=== PATIENT | male | born 1965 | race Caucasian/White ===

== ENCOUNTER 2016-02-26 14:46 | Emergency (ER) | payer MEDICARE, MEDICAID ==
[~2016-02-26] VITALS: Wt 106.0 kg
[2016-02-26] MEDS ORDERED: CEFU500T PO (15:24)
--- NOTE | 2016-02-26 15:26 | ERD ---
ER Documentation Chief Complaint Date/Time DATE: 02/26/16 TIME: 15:25 Chief Complaint headache and sinus pain and fever for the past few days HPI This 50-year-old male presents with a one-2 day history of nasal congestion cough and frontal headache. Symptoms started when he presents to the hospital today for preop laboratory work for arthroscopic knee surgery scheduled in 1 week. May have had low-grade fevers denies shortness breath, vomiting, abdominal pain, neck stiffness. He is advised to be treated for possible sinusitis to avoid cancellation or postponement of his surgery. ROS All systems reviewed and are negative except as per history of present illness. Medications Home Meds Active Scripts Cefuroxime Axetil* (Ceftin*) 500 Mg Tablet, 500 MG PO BID for 10 Days, #20 TAB Prov:DANK LEO MD 02/26/16 Physical Exam Vitals Vital Signs Date Time Temp Pulse Resp B/P Pulse Ox O2 Delivery O2 Flow Rate FiO2 02/26/16 14:48 99.1 88 20 150/91 97 Physical Exam Const: [] Alert, [id number]. Head: Atraumatic Eyes: Normal Conjunctiva ENT: Normal External Ears, Nose and Mouth. 3+ nasal congestion. Mild maxillary tenderness. Postnasal drip. Neck: Full range of motion..~ No meningismus. Resp: Clear to auscultation bilaterally. Slight wheezy cough without rales or wheezing or retractions at rest. Cardio: Regular rate and rhythm, no murmurs Abd: Soft, non tender, non distended. Normal bowel sounds Skin: No petechiae or rashes Back: No midline or flank tenderness Ext: No cyanosis, or edema Neur: Awake and alert Psych: Normal Mood and Affect Procedures/MDM Patient presents with acute URI symptoms and signs of sinusitis. He was treated with Ceftin, Tylenol and instructions to follow-up with primary care doctor and otherwise recheck for new or worsening symptoms. The patient was stable with no new complaints during the ER course. Clinically, there is no current evidence to suggest meningitis, sepsis, acute abdomen, pneumonia, acute coronary syndrome, pulmonary embolism, or any other emergent condition appearing to require further evaluation or hospitalization. The patient should certainly return for any new or worsening symptoms per the aftercare instructions. They should otherwise follow-up with her primary care doctor for reevaluation this week. Departure Diagnosis: Primary Impression: Sinusitis Sinusitis location: frontal Chronicity: acute Recurrence: not specified as recurrent Qualified Code: J01.10 - Acute frontal sinusitis, recurrence not specified Condition: Stable Patient Instructions: Sinusitis, Abx Tx Additional Instructions: Take Tylenol for body aches or fever. Recheck with primary doctor or for new or worsening symptoms. Okay to take [id number] cough medicine as well per DANK LEO MD Feb 26, 2016 15:26
== END 2016-02-26 16:03 | disposition home or self-care (01) ==
LOC: FTE 14:46
DX: J01.10 Acute frontal sinusitis, unspecified (principal)
CPT/HCPCS: 99283

== ENCOUNTER 2016-03-25 09:00 | Day surgery (SDC) | payer MEDICARE, MEDICAID ==
[~2016-03-25] VITALS: Ht 180.3 cm; Wt 109.2 kg
[2016-03-25] VITALS (12 sets, daily range): BP systolic 134–155; BP diastolic 75–95; PULSE 76–88; RESP 10–25; Ht 180.3 cm; Wt 109.2 kg
[~2016-03-25 09:00] MED LIST: CEFU500T PO
[2016-03-25] MEDS ORDERED: LIDOCAINE 2% (SDV) 5 ML INJ ONE (10:03)
[2016-03-25] MEDS ORDERED: PROPOFOL 20 ML ONE (10:03)
[2016-03-25] MEDS ORDERED: FENTAnyl 50 MCG/ML VIAL ONE (10:03)
[2016-03-25] MEDS ORDERED: MIDAZOLAM 1 MG/ML 2 ML INJ ONE (10:04)
[2016-03-25] MEDS ORDERED: ESOM40CA PO (10:17)
[2016-03-25] MEDS ORDERED: TRAM50TA2 PO (10:17)
[2016-03-25] MEDS ORDERED: EFAV1TAB PO (10:17)
[2016-03-25] MEDS ORDERED: GABA300S PO (10:17)
--- NOTE | 2016-03-25 11:53 | HPN ---
Date/Time of Note Date/Time of Note DATE: 03/25/16 TIME: 11:53 Interval H&P Admission Note Pt. seen H&P reviewed: No system changes ALEA COBB MD Mar 25, 2016 11:53
[2016-03-25] MEDS ORDERED: OXYCODONE/ACETAMINOPHEN (5/325) TAB PO PRN ×3 (12:00→13:00)
[2016-03-25] MEDS ORDERED: morphine 10 MG INJ IV PRN (12:00)
[2016-03-25] MEDS ORDERED: morphine 2 MG INJ IV PRN (12:00)
[2016-03-25] MEDS ORDERED: ROPIVACAINE 0.5 % 30 ML VIAL ONE (12:20)
[2016-03-25] MEDS ORDERED: BUPIVACAINE 0.5% (SDV) 30 ML INJ ONE (12:20)
[2016-03-25] MEDS ORDERED: CEFAZOLIN 1 GM INJ ONE (12:25)
[2016-03-25] MEDS ORDERED: DEXAMETHASONE 4 MG/ML 1 ML INJ ONE (12:26)
[2016-03-25] MEDS ORDERED: ONDANSETRON 4 MG INJ ONE (12:26)
[2016-03-25] MEDS ORDERED: HYDROmorphONE 2 MG/ML SYG ONE (12:34)
[2016-03-25] MEDS ORDERED: BUPIVACAINE 0.25% (MPF) 30 ML INJ INJ ONE (12:52)
[2016-03-25] MEDS ORDERED: ROPIVACAINE 0.5 % 30 ML VIAL INJ ONE (12:53)
[2016-03-25] MEDS ORDERED: FENTAnyl 50 MCG/ML VIAL IV PRN (13:00)
[2016-03-25] MEDS ORDERED: HYDROmorphONE (0.2 MG/ML) 10ML SYG IV PRN ×2 (13:00)
[2016-03-25] MEDS ORDERED: MEPERIDINE 25 MG INJ IV PRN (13:00)
[2016-03-25] MEDS ORDERED: ONDANSETRON 4 MG INJ IV PRN (13:00)
[2016-03-25] MEDS ORDERED: DIPHENHYDRAMINE 50 MG INJ IV PRN (13:00)
[2016-03-25] MEDS ORDERED: PROCHLORPERAZINE 10 MG INJ IV PRN (13:00)
[2016-03-25] MEDS ORDERED: METOCLOPRAMIDE 10 MG INJ IV PRN (13:00)
[2016-03-25] MEDS ORDERED: BUPIVACAINE 0.25%/EPI (SDV) 30 ML INJ ONE (14:18)
--- NOTE | 2016-03-27 10:11 | OPR ---
Date/Time of Note Date/Time of Note DATE: 03/27/16 TIME: 10:04 Operative Report Free Text/Dictation DATE OF PROCEDURE: 03/25/2016 SURGEON: Jairon Cobb M.D. ASSEMBLER ADJUSTER: none PREOP DIAGNOSES: 1. Left knee pain 2. 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 Left knee posterior horn medial meniscal tear POSTOP DIAGNOSES: 1. Left knee pain 2. 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 Left knee posterior horn medial meniscal tear 4. Left knee medial compartment grade III 5. Left knee ganglion cyst of the intercondylar notch PROCEDURE: 1. Surgical arthroscopy of the Left knee with partial medial meniscectomy 2. Chondroplasty of the medial and lateral and patella femoral compartments 3. Partial synovectomy 4. Left knee arthroscopic removal of ganglion cyst TOURNIQUET TIME: 0 MINUTES AT 250 mmHg EBL: Less than 20 ML COMPLICATIONS: None CONDITION UPON LEAVING THE OPERATING ROOM: Stable to PACU ANESTHESIA TYPE: General, local INDICATIONS: Patient is a 48-year-old male with ongoing Left knee pain. He has complained of having clicking and locking symptoms over the medial aspect of his knee with no relief with PT or anti-inflammatory. Patient has decided to proceed with surgery. Patient is aware that he has extensive OA to the knee and the goal with this surgery is help achieve better range and motion and help prolong need for tka. RISK NOTE: Patient was explained the risks and benefits of the surgery in the patients wiyot language, including not limited to infection, bleeding, loss of limb, loss of life, need for future surgery, risk of anesthesia, risk of injury to the blood vessels and nerves, ligaments or tendons, and risk of deep vein thrombosis. Patient understood these risks and wished to proceed with the surgery. OPERATIVE NOTE: The correct operative site was noted and marked in the preoperative holding area. The patient was then brought back into the operative theater, placed supine on the operative table. Left knee was examined under anesthesia. Range of motion was 0-120. There is no varus or valgus or anterior posterior instability. There is crepitus noticed at the patellofemoral joint. Tourniquet was then placed on the operative extremity thigh non-sterilely. Patient was then given preoperative antibiotics and then prepped and draped in normal sterile fashion. A timeout was taken and all parties in the room agreed it was the correct patient, correct extremity and correct procedure. 10 cc of 0.25% Marcaine without epi was injected into the anteriorlateral and anteriormedial portal sites prior to incision. Standard anterior lateral portal was created and the knee joint was entered with a blunt tipped trocar, followed by 30 arthroscope. Inflow was achieved with a pump and the pressure maintained at approximately 50 mmHg. A routine arthroscopic surgery was performed. Suprapatella pouch was unremarkable. The undersurface of the patella showed advanced grade 3 chondromalacia and the medial femoral trochlear groove showed advanced grade 3 changes midline with exposed bone. The medial and lateral gutters were visualized. There were no loose bodies seen. There is an inflamed hypertrophic plica noted in the anterior and superior medial aspect of the knee. The popliteus hiatus was entered and was normal. Lateral compartment was entered and grade 1/2 chondromalacia was seen on the lateral tibial plateau and femoral condyle. Scope was then brought into the intercondylar notch and an anteromedial portal was made. Shaver was brought into the knee and small amount of fat pad and scar tissue was initially gently debrided. Ganglion cyst was identified and debrided from the intercondylar notch that was very synovitic The anterior cruciate ligament was intact and probed. The knee was brought into a valgus position and the medial compartment was entered. The articular surface of the medial femoral condyle and medial tibial plateau revealed diffuse grade 3 chondromalacia. There was a degenerative posterior horn medial meniscus tear extending to the midbody that was associated with a radial tear that visualized and debrided gently with a motorized shaver and basket forceps, the posterior horn demonstrated a degenerative tear and fibrillation pattern. The motorized shaver and basket biters were used to smooth the remaining meniscal rim, with care to maintain the peripheral meniscal rim. A probe was introduced and this was carefully probed and was found to be stable. Chondroplasty was then carried out along the weightbearing aspect of the medial femoral condyle, medial tibial plateau, taking care to remove only loose articular cartilage debris and preserve functional articular cartilage. The lateral compartment was reentered and the loose chondral debris was debrided with motorized shaver. Attention was then directed back to the patella femoral joint and a chondroplasty was carried out along the weightbearing aspect of the trochlea and undersurface of the patella to again remove loose debris and maintain functional active articular cartilage. The knee was then irrigated with additional 2 L of lactated Ringers solution. Excess fluid was then drained. Range of motion was then attempted showing 0- 125 degrees of motion The portal sites were closed with 4-0 Monocryl and Steri-Strips and dressed with Xeroform and triple antibiotic ointment. The knee was then injected with 20 cc of 0.5% plain ropivacaine. A dry sterile dressing was then applied followed by a bulky soft bandage in a thigh-high Gabe stocking. At the completion of the surgery patient had palpable pulses, soft arms and brisk cap refill. The patient tolerated the procedure well and was taken to the PACU without any complications. All sponge and needle counts were correct. Patient will begin pain medicine and 48 hours of antibiotics as well as aspirin 81 mg for the duration of 4 weeks postoperatively JAIRON COBB MD Mar 27, 2016 10:11
== END 2016-03-25 15:40 | disposition home or self-care (01) ==
LOC: SDS 09:00
PROVIDERS: ATTEND Orthopaedic Surgery
DX: M23.222 Derangement of posterior horn of medial meniscus due to old tear or injury, left knee (principal); M94.262 Chondromalacia, left knee; M67.462 Ganglion, left knee
CPT/HCPCS: 29870; J0690; J1100; J1170; J1200; J2250; J2405; J2795; J3010